=== PATIENT | male | born 1980 | race African-American/Black ===

== ENCOUNTER 2024-10-03 12:35 | Outpatient (CLI) | payer OTHER ==
[2024-10-03 13:21] LABS: Hematocrit 42.0 % (42.0-52.0); Hemoglobin 14.9 g/dL (14.0-18.0); Mean Corpuscular Hemoglobin 31.3 pg (27.0-31.0); Mean Corpuscular Volume 88.2 fL (78.0-98.0); Platelet Count 239 10x3/uL (130-400); Red Blood Cell (RBC) Count 4.76 mill/uL (4.70-6.10); White Blood Cell (WBC) Count 6.86 10x3/uL (4.8-10.8)
== END 2024-10-03 12:36 | disposition home or self-care (01) ==
LOC: LABBT 12:35
PROVIDERS: ATTEND Orthopaedic Surgery
DX: Z01.812 Encounter for preprocedural laboratory examination (principal); S60.459A Superficial foreign body of unspecified finger, initial encounter
CPT/HCPCS: 85027